=== PATIENT | male | born 1955 | race Caucasian/White ===

== ENCOUNTER 2018-03-05 06:37 | Inpatient (IN) ==
[2018-03-05] MEDS ORDERED: Metoprolol Tartrate 25 MG Tablet PO SCH (07:15)
[2018-03-05] MEDS ORDERED: Chlorhexidine Gluconate 2% 1 Pack (2 Cloths) TOPICAL SCH (07:15)
[2018-03-05] MEDS ORDERED: Sodium Chlor 0.9% Inj 40 ML, Bupivacaine Liposo PF 1.3% Inj 20 ML P-ARTICULR SCH ×2 (07:15)
[2018-03-05] MEDS ORDERED: Tetracaine PF 1% Inj 20 MG/2 ML Ampul ONE (07:54)
[2018-03-05] MEDS ORDERED: TRANEXAMIC ACID IV.SIG SCH ×2 (08:00→10:16)
[2018-03-05] MEDS ORDERED: ceFAZolin 2 GM Premix Inj 2 GM/50 ML PIGGYBACK IV.SIG SCH (08:00)
[2018-03-05] MEDS ORDERED: SODIUM CHLOR 0.9% IV.SIG SCH ×2 (08:00→10:16)
[2018-03-05] MEDS ORDERED: Sodium Chlor 0.9% Inj 500 ML IV.SIG SCH (08:00)
[2018-03-05] MEDS ORDERED: Propofol Inj 500 MG/50 ML Vial ONE (09:02)
[2018-03-05] MEDS ORDERED: Zolpidem Tartrate 5 MG Tablet PO PRN (11:18)
[2018-03-05] MEDS ORDERED: Morphine Inj 4 MG/ML Vial IV.PUSH PRN (11:18)
[2018-03-05] MEDS ORDERED: Acetaminophen 325 MG Tablet PO PRN (11:18)
[2018-03-05] MEDS ORDERED: Bisacodyl 10 MG Supp RECTAL PRN (11:18)
[2018-03-05] MEDS ORDERED: Tranexamic Acid Inj 0 MG in Sodium Chlor 0.9% Inj 100 ML IV.SIG ONE (11:18)
[2018-03-05] MEDS ORDERED: Post-op Orders (for Pharmacy) OTHER STA (11:18)
[2018-03-05] MEDS ORDERED: Aluminum/Magnesium/Simethacone Susp 30 ML UDC PO PRN (11:18)
--- NOTE | 2018-03-05 11:28 | P.OP ---
- Preoperative Diagnosis (1) Primary osteoarthritis of right hip - Postoperative Diagnosis (1) Primary osteoarthritis of right hip Date of procedure: 03/05/18 Procedure: Right total hip arthroplasty using Raymundo prosthesis Anesthesia: local (Exparel), spinal Surgeon: Luis Reynolds MD Track Watchman: BRAD Bates Estimated blood loss (mL): 350 Pathology: none sent Operation and Findings: Indications and Findings: This 63-year-old man has a 67 year history and limits his activities of daily living. His ambulation tolerance is 2 miles. He has pain throughout the 2 miles. He has stiffness in the joints. He has difficulty standing from a seated position, ascending and descending stairs and climbing into and out of his truck. He has been treated with nonsteroidal anti- inflammatory agents, analgesics, activity modification, intra-articular corticosteroids and ambulatory aids physical findings showed limitation of range of motion of the right hip with tenderness on motion imaging studies including x-rays and MRI show advanced arthritis in the right hip with loss of articular cartilage to [id number], osteophytes and subchondral sclerosis. Operative findings: There is severe osteoarthritis in the right hip with osteophytes and subchondral sclerosis with loss of articular cartilage to bone- on-bone and deformity of the femoral head. Implants: The acetabular component was a 58 mm Tritanium cluster shell with a 36 mm inner diameter 0 X3 polyethylene liner. The femoral component was an Accolade 2, size 7 x 132. The femoral head was 36 mm outer diameter, -2.5 mm offset, Biolox Delta. The patient was brought to the clean air operating suite and a spinal anesthetic was administered. The patient was positioned into a lateral position with the operative hip up on a [employer] lateral positioner. The hip and lower extremity were prepped with alcohol, Hibiclens and ChloraPrep and draped in the usual manner with the hip draped free. Patient received prophylactic antibiotics preoperatively. The patient also received tranexamic acid preoperatively. An appropriate timeout procedure was carried out. An incision was made from the midportion of the greater trochanter proximally and posteriorly paralleling the fibers of the gluteus van. The incision was deepened through subcutaneous tissues down to the fascia kiara and gluteus fascia. The gluteus fascia was then split longitudinally in line with its fibers up to the upper portion of the fascia kiara. With wound towels in place, the Charnley retractor was inserted. The sciatic nerve was identified and protected throughout the procedure. Dissection was then carried down to the interval between the gluteus minimus and the piriformis. A retractor was inserted. The piriformis and obturator conjoined tendon was released from the greater trochanter and reflected off the capsule. A capsulotomy was made longitudinally along the femoral neck to the base of the femoral neck and then curved distally along the posterior aspect of the greater trochanter. The hip was internally rotated. Further release of the external rotators was carried out exposing the hip. The hip was dislocated. The femoral neck was transected at the appropriate level using the oscillating saw placement of appropriate retractors. The femoral head was removed. Preparation of the femur was initiated with a box osteotome followed by a curet to identify the medullary canal. Broaching was then initiated with the size 0 broach and went in 1 size increments up to size 7. The broach handle was removed. The femoral neck was then trimmed with a calcar planar later in the procedure. Attention was then directed to the acetabulum. Soft tissues were debrided from the acetabulum. Retractors were placed about the acetabulum. Reaming was then initiated with the 45 millimeter reamer and went in 1-2 mm increments up to the 58 millimeter diameter reamer. A trial reduction with the 58 millimeter trial prosthesis was carried out. When this was deemed to be appropriate, the trial prosthesis was removed. The acetabulum was irrigated and cleaned. The actual prosthesis as noted above was impacted into place and seated appropriately. Drill holes were made and sounded. Appropriate sized screws were inserted to stabilize the acetabulum further. The liner as noted above was inserted into the acetabular shell and impacted into place. Osteophytes were trimmed from the acetabulum. Local anesthetic was administered throughout the area of the acetabulum and anterior aspect of the femur. The trial neck was placed on the broach for the above-noted prosthesis. The femoral head trial was placed onto the femoral neck . A trial reduction was carried out. Adjustment was made as needed. The stability, leg length and motion were excellent. There was no pistoning. The trial prosthesis was removed. The broach was removed. The femoral component was impacted into the medullary canal of the femur after irrigation and suctioning. When this was appropriately seated a trial reduction was again carried out with the trial prosthesis. There was no pistoning. The leg length was appropriate. The stability and motion were excellent. The trial prosthesis was then removed. After cleaning and drying the trunion of the femoral component, the above-noted femoral head was impacted onto the trunnion. The hip was reduced. The stability and mobility were again checked along with leg lengths as noted above. The hip was positioned appropriately and closure commenced after the remainder of the local anesthetic was injected throughout the hip. The external rotators and capsule were repaired with #1 Vicryl interrupted transosseous sutures with a Krakw technique to reattach the external rotators and capsule to the posterior aspect of the greater trochanter. The capsule itself on the superior aspect was closed with #1 Vicryl interrupted [id number] sutures. The sciatic nerve was inspected. The fascia kiara and gluteus fascia were repaired with #1 Vicryl interrupted [id number] sutures. The subcutaneous tissues were closed with 2-0 Vicryl interrupted simple sutures with buried knots. The skin was closed with a continuous subcuticular closure of 4-0 Monocryl. The wound was then approximated with Dermabond Prineo. A dry sterile dressing was applied to the hip. A knee immobilizer was applied to the leg. The patient was transferred from the operating room to the recovery room in satisfactory condition having tolerated the procedure well. Counts are correct. Specimens: None. Estimated blood loss: 350 mL
[2018-03-05] MEDS ORDERED: Labetalol HCl Inj 100 MG/20 ML Vial IV.CONT ONE (11:30)
[2018-03-05] MEDS ORDERED: fentaNYL Citrate Inj 100 MCG/2 ML Ampul ONE (11:33)
[2018-03-05] MEDS: Ketorolac Inj 30 MG/ML (IVP) Vial IV.PUSH SCH ×3 (12:15→23:05)
--- NOTE | 2018-03-05 12:25 | XR ---
EXAM DATE: 03/05/2018 12:14 PM EDT AGE/SEX: 63 years / Male INDICATIONS: Post right hip replacement CLINICAL DATA: This is the patient's initial encounter. Patient reports that signs and symptoms have been present for 1 day and indicates a pain score of Nonresponsive. MEDICAL/SURGICAL HISTORY: Non-responsive. Non-responsive. COMPARISON: No prior exams available for comparison. FINDINGS: Bony pelvis is intact and has normal morphology. Moderate osteoarthritis seen of the left hip. On the right, patient is status post total hip arthroplasty which appears intact and normally aligned. No a cute complication demonstrated. CONCLUSION: No acute abnormality demonstrated. Right total hip arthroplasty with an expected radiographic appeara nce. There is moderate osteoarthritis of the left hip. Electronically signed by: Alexys Portillo MD 03/05/2018 12:24 PM EDT
--- NOTE | 2018-03-05 16:55 | P.CON ---
History of Present Illness Service: [facility] Consult date: 03/05/18 Requesting Physician: Luis Reynolds Reason for Consult: Medical management Primary Care Provider: Gabrielle Dye Chief Complaint: Elective right hip arthroplasty History of Present Illness: 63-year-old male with past medical history significant for pre- hypertension and osteoarthritis who presents to [place] for elective right hip total arthroplasty by Dr. Reynolds. Patient is seen and examined sitting up in chair with at bedside. He reports that his pain is well controlled however still having numbness due to spinal anesthesia. He denies any nausea, vomiting, shortness of breath, cough, chills, headache, dizziness, or chest pain. He does complain of left shoulder pain, reports this pain began 2 nights ago. Patient rates left shoulder pain 2/10 He voices no other acute concerns or complaints at the moment. Review of Systems All other systems reviewed negative except as stated in HPI [facility] - History History Provided By: Patient - Medical History Medical History: Medical History (Last Reviewed 03/05/18 @ 16:48 by Adriana Joya) History of dental problems (Acute) Hyperlipidemia (Acute) Arthritis (Acute) - Surgical History Surgical History: Surgical History (Last Updated 03/05/18 @ 16:48 by Adriana Joya) History of toe surgery (Acute) Hx of vasectomy (Acute) S/P hernia repair - Tobacco History Second Hand Smoke Exposure: No Tobacco Use In Past 30 Days: No Smoking Status: Never smoker - Alcohol History How Often Do You Have a Drink Containing Alcohol: 4 or more times a week - Substance Use History Substance History: No History of Abuse - Travel History Recent Travel in the [facility] Within the Last 8 Weeks: No Recent Travel Out of the Country Within the Last 8 Weeks: No Medications and Allergies Active Medications: Active Medications Acetaminophen (Tylenol) 650 mg PO Q6H PRN PRN Reason: Pain Less Than 3 On Scale Hydrocodone Bitart/Acetaminophen (Melvin 7.5/325) 1 tab PO Q4H PRN PRN Reason: PAIN SCALE 4 TO 6 MODERATE Hydrocodone Bitart/Acetaminophen (Melvin 7.5/325) 2 tab PO Q6H PRN PRN Reason: PAIN SCALE 7 TO 10 SEVERE Al Hydrox/Mg Hydrox/Simethicone (Mag-Al Plus Susp Liq) 30 ml PO Q6H PRN PRN Reason: INDIGESTION Al Hydroxide/Mg Hydroxide (Milk Of Cait Liq) 30 ml PO BID PRN PRN Reason: Mild Constipation Ascorbic Acid (Vitamin C) 500 mg PO DAILY [facility] Aspirin (Aspirin Chew) 81 mg PO BID [facility] Bisacodyl (Dulcolax Supp) 10 mg RECTAL DAILY PRN PRN Reason: SEVERE CONSITIPATION Chlorhexidine Gluconate (Chlorhexidine 2% Cloth) 3 pack TOPICAL TEACHER COUNSELOR [facility] Stop: 03/08/18 07:14 Last Admin: 03/05/18 06:30 Dose: 3 pack Sodium Chloride 40 ml/ (Bupivacaine Liposome 20 ml) 0 ml P-ARTICULR ONCE [facility] Last Admin: 03/05/18 09:11 Dose: 1 bag Diphenhydramine HCl (Benadryl) 25 mg PO Q6H PRN PRN Reason: ITCHING Lactated Ringer's (Lr 1000 Ml Inj) 1,000 mls @ 30 mls/hr IV.SIG .Q24H [facility] Stop: 03/08/18 07:14 Last Infusion: 03/05/18 10:58 Dose: Infused Sodium Chloride (Ns Inj) 500 mls @ 30 mls/hr IV.SIG .Q10H [facility] Stop: 03/08/18 07:14 Cefazolin Sodium/Dextrose (Ancef 2 Gm Premix Inj) 2 gm in 50 mls @ 100 mls/hr IV.SIG TEACHER COUNSELOR [facility] Stop: 03/09/18 07:59 Last Infusion: 03/05/18 09:07 Dose: Infused Tranexamic Acid 937 mg/ Sodium (Chloride) 109.37 mls @ 200 mls/hr IV.SIG ONCE [facility] Stop: 03/06/18 07:59 Last Infusion: 03/05/18 09:20 Dose: Infused Tranexamic Acid 937 mg/ Sodium (Chloride) 109.37 mls @ 200 mls/hr IV.SIG ONCE [facility] Stop: 03/06/18 10:15 Cefazolin Sodium 1,000 mg/ (Sodium Chloride) 100 mls @ 200 mls/hr IV.SIG Q6H [facility] Stop: 03/06/18 03:29 Last Admin: 03/05/18 15:00 Dose: 200 mls/hr Lactated Ringer's (Lr 1000 Ml Inj) 1,000 mls @ 80 mls/hr IV.CONT .[id number] [facility] Last Admin: 03/05/18 11:25 Dose: 80 mls/hr Ketorolac Tromethamine (Toradol Inj) 15 mg IV.PUSH Q6H [facility] Stop: 03/07/18 06:01 Last Admin: 03/05/18 12:15 Dose: 15 mg Lactulose (Lactulose Liq) 30 ml PO DAILY PRN PRN Reason: SEVERE CONSITIPATION Metoprolol Tartrate (Lopressor) 25 mg PO TEACHER COUNSELOR [facility] Stop: 03/08/18 07:14 Miscellaneous Information ([facility] [place] [facility] Information) 1 each OTHER UNSCH PRN PRN Reason: SEE LABEL COMMENTS Stop: 03/06/18 11:24 Morphine Sulfate (Morphine Inj) 2 mg IV.PUSH Q3H PRN PRN Reason: BREAKTHROUGH PAIN Multivitamins (Theragran) 1 tab PO DAILY [facility] Ondansetron HCl (Zofran Odt) 4 mg PO Q6H PRN PRN Reason: NAUSEA OR VOMITING Povidone Iodine (Betadine 5% Antisepsis Kit) 1 applicatio EACH NARE TEACHER COUNSELOR [facility] Stop: 03/08/18 07:14 Senna/Docusate Sodium (Melissa-Colace) 1 tab PO BID [facility] Sennosides (Senokot) 17.2 mg PO BID PRN PRN Reason: Moderate Constipation Sodium Chloride (Ns Flush) 2 ml IV.FLUSH BID [facility] Sodium Chloride (Ns Flush) 2 ml IV.FLUSH PRN PRN PRN Reason: FLUSH AFTER USING IV ACCESS Vitamin B Complex/Vit C/Folic Acid (Nephrocaps) 1 tab PO DAILY [facility] Whey (Beneprotein Powder) 1 packet PO DAILY [facility] Zolpidem Tartrate (Ambien) 5 mg PO HS PRN PRN Reason: INSOMNIA Allergies Allergy/AdvReac Type Severity Reaction Status Date / Time No Known Allergies Allergy Verified 03/05/18 07:22 Home Medications Medication Instructions Recorded Confirmed Type ascorbic acid (vitamin C) 500 mg PO DAILY 02/26/18 03/05/18 History aspirin [Aspir-Low] 81 mg PO DAILY 02/26/18 02/26/18 History [id number]-[id number]-wvttm-CF borate 2 tab PO DAILY 02/26/18 03/05/18 History [Move Free Joint [facility]] meloxicam 15 mg PO DAILY 02/26/18 02/26/18 History multivitamin [Daily Multi-Vitamin] 1 tab PO DAILY 02/26/18 03/05/18 History red yeast rice 1,200 mg PO DAILY 02/26/18 03/05/18 History vitamin B complex 1 cap PO DAILY 02/26/18 03/05/18 History wheat dextrin [Benefiber Sugar 1 packet PO DAILY 02/26/18 03/05/18 History Free (dextrin)] Physical Exam Vital signs: Vital Signs 03/05/18 07:42 03/05/18 11:25 03/05/18 11:30 Temperature 37.1 C 36.2 C L Pulse Rate 77 66 60 Respiratory Rate 20 16 16 Blood Pressure 150/92 H 132/72 129/70 Pulse Oximetry 97 100 100 03/05/18 11:45 03/05/18 12:00 03/05/18 12:15 Temperature Pulse Rate 58 L 56 L 56 L Respiratory Rate 16 16 16 Blood Pressure 136/75 121/57 L 121/66 Pulse Oximetry 100 98 98 03/05/18 12:30 03/05/18 12:45 03/05/18 13:00 Temperature Pulse Rate 56 L 56 L 58 L Respiratory Rate 16 16 16 Blood Pressure 120/64 126/68 128/74 Pulse Oximetry 98 98 99 03/05/18 13:30 03/05/18 14:00 03/05/18 15:00 Temperature Pulse Rate 58 L 58 L 60 Respiratory Rate 16 16 16 Blood Pressure 127/70 134/71 132/70 Pulse Oximetry 97 98 99 Intake & Output 03/04/18 03/05/18 03/05/18 18:59 06:59 18:59 Intake Total 2759.37 / 2759.37 Output Total 850 / 850 Balance 1909.37 / 1909.37 Weight 93.7 kg Intake: IV 1159.37 / 1159.37 LR 1000 mL Inj 1,000 ML @ 30 1000 / 1000 mls/hr IV.SIG .Q24H [facility] Rx#: [id number] Cyklokapron Inj 937 MG In NS 109.37 / 109.37 Inj 100 ML @ 200 mls/hr IV.SIG ONCE [facility] Rx#:[id number] Ancef 2 GM Premix Inj 2 gm In 50 / 50 50 ml @ 100 mls/hr IV.SIG TEACHER COUNSELOR [facility] Rx#:[id number] Anesthesia Amount 1500 / 1500 Other 100 / 100 Output: Urine 500 / 500 Estimated Blood Loss 350 / 350 Other: Weight On Admission 93.7 kg Narrative: GENERAL: Well-nourished well-developed male sitting up in chair in no acute distress. SKIN: Warm and dry. HEAD: Atraumatic. Normocephalic. EYES: Pupils equal and round. No scleral icterus. No injection or drainage. ENT: No nasal bleeding. Mucous membranes pink and moist. NECK: Trachea midline. No JVD. CARDIOVASCULAR: Regular rate and rhythm. RESPIRATORY: No accessory muscle use. Clear to auscultation. Breath sounds equal bilaterally. GASTROINTESTINAL: Abdomen soft, non-tender, nondistended. + Bowel sounds. MUSCULOSKELETAL: Extremities without clubbing, cyanosis, or edema. Right hip dressings dry and intact. Left shoulder with + crepitus w/ passive and active ROM. NEUROLOGICAL: Awake and alert. No obvious cranial nerve deficits. Motor grossly within normal limits. Normal speech. PSYCHIATRIC: Appropriate mood and affect; insight and judgment normal. Assessment and Plan - Plan Osteoarthritis of right hip -Status post total right hip arthroplasty with Raymundo prosthesis 03/[address] Reynolds -Pain control with p.o. Melvin, IV morphine for breakthrough pain, bowel regimen -PT consulted -Will need follow-up for left shoulder pain Pre-hypertension -BP stable, continue monitoring. DVT prophylaxis-aspirin 81 mg twice daily Thank you Dr. Reynolds for this consultation. We will continue to follow along. Discussed Condition With: Discussed with patient and at bedside. Discharge Planning: Discharge pending orthopedic clearance.
[2018-03-05] MEDS: Senna/Docusate Sodium 8.6/50 MG Tablet PO SCH (20:37)
--- NOTE | 2018-03-05 20:50 | XR ---
EXAM DATE: 03/05/2018 8:07 PM EDT AGE/SEX: 63 years / Male INDICATIONS: Left shoulder pain from unknown injury. CLINICAL DATA: This is the patient's initial encounter. Patient reports that signs and symptoms have been present for 1 day and indicates a pain score of 7/10. MEDICAL/SURGICAL HISTORY: None. None. COMPARISON: No prior exams available for comparison. FINDINGS: Bony structures are intact and in normal alignment. Joints are intact without dislocation or signifi cant arthropathy. Osseous density is normal. Soft tissues are unremarkable. No radiopaque foreign bodies seen. CONCLUSION: Negative left shoulder series. Electronically signed by: Alexys Borrego MD 03/05/2018 8:49 PM EDT
[2018-03-06] MEDS: Ketorolac Inj 30 MG/ML (IVP) Vial IV.PUSH SCH (06:06)
--- NOTE | 2018-03-06 06:42 | P.PNOP ---
Subjective Interval history: Postoperative day #1 The patient is doing well. He no longer has any hip pain. He was able to stand with physical therapy but did not walk because his spinal effect had persisted when he was seen. He feels like he is ready to go home today. His left shoulder pain is much better today. He does indicate that there was some crepitation in his shoulder. Physical Exam Vital signs: Vital Signs 03/05/18 07:42 03/05/18 11:25 03/05/18 11:30 Temperature 98.8 F 97.2 F L Pulse Rate 77 66 60 Respiratory Rate 20 16 16 Blood Pressure 150/92 H 132/72 129/70 Pulse Oximetry 97 100 100 03/05/18 11:45 03/05/18 12:00 03/05/18 12:15 Temperature Pulse Rate 58 L 56 L 56 L Respiratory Rate 16 16 16 Blood Pressure 136/75 121/57 L 121/66 Pulse Oximetry 100 98 98 03/05/18 12:30 03/05/18 12:45 03/05/18 13:00 Temperature Pulse Rate 56 L 56 L 58 L Respiratory Rate 16 16 16 Blood Pressure 120/64 126/68 128/74 Pulse Oximetry 98 98 99 03/05/18 13:30 03/05/18 14:00 03/05/18 15:00 Temperature Pulse Rate 58 L 58 L 60 Respiratory Rate 16 16 16 Blood Pressure 127/70 134/71 132/70 Pulse Oximetry 97 98 99 03/05/18 20:00 03/06/18 00:00 03/06/18 03:30 Temperature 98.2 F 98.8 F 97.7 F Pulse Rate 78 79 60 Respiratory Rate 18 18 18 Blood Pressure 157/88 H 135/78 144/73 H Pulse Oximetry 95 98 97 Intake & Output 03/05/18 03/05/18 03/06/18 06:59 18:59 06:59 Intake Total 2859.37 / 2859.37 1580 / 1580 Output Total 850 / 850 Balance / 1580 / 1580 Weight 93.7 kg 94 kg Intake: IV 1259.37 / 1259.37 1100 / 1100 LR 1000 mL Inj 1,000 ML @ 80 1000 / 1000 mls/hr IV.CONT .[id number] [facility] Rx# :[id number] LR 1000 mL Inj 1,000 ML @ 30 1000 / 1000 mls/hr IV.SIG .Q24H [facility] Rx#: [id number] Cyklokapron Inj 937 MG In NS 109.37 / 109.37 Inj 100 ML @ 200 mls/hr IV.SIG ONCE [facility] Rx#:[id number] Ancef 2 GM Premix Inj 2 gm In 50 / 50 50 ml @ 100 mls/hr IV.SIG BUFFING MACHINE OPERATOR SEMIAUTOMATIC [facility] Rx#:[id number] Ancef Inj 1,000 MG In NS Inj 100 / 100 100 / 100 100 ML @ 200 mls/hr IV.SIG Q6H [facility] Rx#:[id number] Oral 480 / 480 Anesthesia Amount 1500 / 1500 Other 100 / 100 Output: Urine 500 / 500 Estimated Blood Loss 350 / 350 Other: # Voids 2 Date of Last Bowel Movement 03/04/18 Weight On Admission 93.7 kg Narrative: He is resting comfortably, supine in bed. The dressing is dry and intact. His neurovascular status is intact. His left shoulder motion is fairly good although there is crepitation on motion. He has minor tenderness with this. Results - Labs Laboratory Results - last 24 hr 03/05/18 07:30 Blood Type A Positive Blood Type Recheck Required Antibody Screen Negative - Imaging Impressions Shoulder X-Ray 03/05/18 00:00 CONCLUSION: The left shoulder in 2 views shows no evidence of acute fracture, dislocation or recent bony trauma. The glenohumeral and acromioclavicular joint spaces appear to be normal. There are some degenerative changes with osteophytes about the humeral head at the anatomic neck. The position of the humeral head in relation to the glenoid is normal. Hip X-Ray 03/05/18 11:14 CONCLUSION: The right hip and 2 views with an AP pelvis show good position and alignment of the total hip prosthesis. - Procedures Right total hip arthroplasty using Taylor prosthesis on 03/05/2018. Assessment and Plan - Ortho Post Op Day # 1 - Problem List (1) Status post total replacement of right hip Code(s): Z96.641 - Presence of right artificial hip joint Status: Acute Plan: Continue postop care and PT. (2) Primary osteoarthritis of right hip Code(s): M16.11 - Unilateral primary osteoarthritis, right hip Status: Chronic - Assessment and Plan Condition: Good. Orthopedically stable. DVT prophylaxis: TEDs, aspirin, sequentials. Discharge plans: Home with home health care. An appointment was scheduled through the office. Prescriptions: [place] 7.5/325; Patient is having significant pain caused by a total hip arthroplasty which will last more than 3 days. Trial of Tylenol has not helped. I believe that it is medically necessary to treat patients pain because it is affecting patients ability to participate in postoperative rehabilitation and perform activities of daily living in a comfortable and efficient manner.
--- NOTE | 2018-03-06 06:49 | P.DS ---
Date of admission: 03/05/18 06:37 Primary care physician: Gabrielle Dye Attending physician on discharge: Luis Reynolds Anticipated date of discharge: 03/06/18 Brief History from admission: This 63-year-old man has had long-standing in his right hip over several years, worsening more recently. He has a limited ambulation tolerance, difficulty entering and exiting his vehicle, difficulty standing from a seated position and ascending and descending stairs. He has not responded to conservative measures including anti-inflammatory agents, analgesics, intra-articular corticosteroids or the use of ambulatory aids. This is interfered with his work. Physical findings showed limited range of motion in the hip with crepitation on motion, tenderness on motion and an antalgic gait. X-rays showed severe osteoarthritis with eburnation, osteophytes about the femoral head and acetabulum loss of articular cartilage to [id number]. There was prominence in the lateral aspect of the femoral head and neck consistent with femoral acetabular impingement. DS: Diagnosis - Discharge Diagnosis (1) Status post total replacement of right hip Status: Acute (2) Primary osteoarthritis of right hip Status: Chronic DS: Medications - Discharge Medications Prescriptions: hydrocodone-acetaminophen 1 tab PO Q4H PRN 7 Days #42 tab PRN Reason: Pain DS: Summary Hospital Course: The patient was admitted as noted above. The above noted operative procedure was carried out that day. Preoperatively prophylactic antibiotics were administered Ancef according to protocol. These were continued postoperatively. The patient also received tranexamic acid to help with hemostasis according to protocol. In the postanesthesia care unit mechanical methods of DVT prophylaxis in the form of CORRY stockings and sequentials were initiated. Physical therapy was initiated on the day of surgery. He complained of pain in his left shoulder. X-rays of the shoulder showed some mild arthritis. On postoperative day #1 physical therapy continued. DVT prophylaxis with aspirin 81 mg twice daily was initiated at this time. The patient continued physical therapy throughout the hospitalization. The distance walked and range of motion improved throughout the hospitalization. The patient was discharged on postoperative day 1 with the disposition being to home with home health care. An appointment for follow-up was made prior to admission. - Time Spent with Patient Total time spent providing and/or coordinating discharge services: - Quality: VTE Deep Vein Thrombosis/Pulmonary Embolism Present on Admission: No Exam Vital signs: Vital Signs 03/05/18 07:42 03/05/18 11:25 03/05/18 11:30 Temperature 98.8 F 97.2 F L Pulse Rate 77 66 60 Respiratory Rate 20 16 16 Blood Pressure 150/92 H 132/72 129/70 Pulse Oximetry 97 100 100 03/05/18 11:45 03/05/18 12:00 03/05/18 12:15 Temperature Pulse Rate 58 L 56 L 56 L Respiratory Rate 16 16 16 Blood Pressure 136/75 121/57 L 121/66 Pulse Oximetry 100 98 98 03/05/18 12:30 03/05/18 12:45 03/05/18 13:00 Temperature Pulse Rate 56 L 56 L 58 L Respiratory Rate 16 16 16 Blood Pressure 120/64 126/68 128/74 Pulse Oximetry 98 98 99 03/05/18 13:30 03/05/18 14:00 03/05/18 15:00 Temperature Pulse Rate 58 L 58 L 60 Respiratory Rate 16 16 16 Blood Pressure 127/70 134/71 132/70 Pulse Oximetry 97 98 99 03/05/18 20:00 03/06/18 00:00 03/06/18 03:30 Temperature 98.2 F 98.8 F 97.7 F Pulse Rate 78 79 60 Respiratory Rate 18 18 18 Blood Pressure 157/88 H 135/78 144/73 H Pulse Oximetry 95 98 97 Intake & Output 03/05/18 03/05/18 03/06/18 06:59 18:59 06:59 Intake Total 2859.37 / 2859.37 1580 / 1580 Output Total 850 / 850 Balance 37 / 1580 / 1580 Weight 93.7 kg 94 kg Intake: IV 1259.37 / 1259.37 1100 / 1100 LR 1000 mL Inj 1,000 ML @ 80 1000 / 1000 mls/hr IV.CONT .[id number] [facility] Rx# :[id number] LR 1000 mL Inj 1,000 ML @ 30 1000 / 1000 mls/hr IV.SIG .Q24H [facility] Rx#: [id number] Cyklokapron Inj 937 MG In NS 109.37 / 109.37 Inj 100 ML @ 200 mls/hr IV.SIG ONCE [facility] Rx#:[id number] Ancef 2 GM Premix Inj 2 gm In 50 / 50 50 ml @ 100 mls/hr IV.SIG [employer] [facility] Rx#:[id number] Ancef Inj 1,000 MG In NS Inj 100 / 100 100 / 100 100 ML @ 200 mls/hr IV.SIG Q6H [facility] Rx#:[id number] Oral 480 / 480 Anesthesia Amount 1500 / 1500 Other 100 / 100 Output: Urine 500 / 500 Estimated Blood Loss 350 / 350 Other: # Voids 2 Date of Last Bowel Movement 03/04/18 Weight On Admission 93.7 kg Narrative: He is resting comfortably, supine in bed, with the leg in the leg brace. His neurovascular status is intact. His dressing is dry and intact. Results Procedures completed during hospitalization: Right total hip arthroplasty using Idamay prosthesis on 03/05/2018. Labs on day of discharge: Labs from last 24 hours 03/05/18 07:30 Blood Type A Positive Blood Type Recheck Required Antibody Screen Negative - Impressions ITS Impressions Shoulder X-Ray 03/05/18 00:00 CONCLUSION: There was mild osteoarthritis in the glenohumeral joint. Hip X-Ray 03/05/18 11:14 CONCLUSION: A total hip arthroplasty is noted in good position and alignment. Discharge Plan - Discharge Disposition Patient Disposition: /Home Health Service - Discharge Condition Condition: Stable - Discharge Order Discharge Orders: Discharge Order (Routine); Ordered 03/06/18 Ordered By: Luis Reynolds - Discharge Details Anticipated Discharge Date: 03/06/18 - Physicians Team Attending Provider: Luis Reynolds Other Providers: Nils Ruiz MD - Rxs /Orders / Referrals /Forms Prescriptions: New aspirin 81 mg Tablet,Chewable 81 mg PO BID Qty: 0 RF: 0 hydrocodone-acetaminophen 7.5-325 mg Tablet 1 tab PO Q4H PRN (Reason: Pain) 7 Days Qty: 42 RF: 0 Continue ascorbic acid (vitamin C) 500 mg Tablet 500 mg PO DAILY [id number] borate [Move [employer] Health] 750 mg-100 mg- 1.65 mg-108 mg Tablet 2 tab PO DAILY meloxicam 15 mg Tablet 15 mg PO DAILY multivitamin [Daily Multi-Vitamin] Tablet 1 tab PO DAILY red yeast rice 600 mg Capsule 1,200 mg PO DAILY vitamin B complex Capsule 1 cap PO DAILY wheat dextrin [Benefiber Sugar Free (dextrin)] 3 gram/3.8 gram Powder 1 packet PO DAILY Discontinued aspirin [Aspir-Low] 81 mg Tablet,Delayed Release (Dr/Ec) 81 mg PO DAILY Referrals: Gabrielle Dye [Other] - See Instructions Luis Reynolds MD [Physician] - See Instructions - Discharge Instructions Patient Printed Instructions: Total Hip Replacement (DC)
[2018-03-06 07:41] LABS: Hematocrit 36.5 % (39.0-51.0); Hemoglobin 12.6 gm/dL (13.0-17.0)
[2018-03-06] MEDS: Senna/Docusate Sodium 8.6/50 MG Tablet PO SCH (08:35)
[2018-03-06] MEDS ORDERED: Vitamin B Complex/Vit C/Folic Tablet PO SCH (09:00)
[2018-03-06] MEDS ORDERED: Ascorbic Acid 500 MG Tablet PO SCH (09:00)
[2018-03-06] MEDS ORDERED: Beneprotein Powder Packet PO SCH (09:00)
[2018-03-06] MEDS ORDERED: [UNRECOGNIZED DRUG - REMARK] PO SCH (09:00)
== END 2018-03-06 11:31 | disposition home health service (06) ==
LOC: HSDI 06:37 → N06 16:05
PROVIDERS: ADMIT Orthopaedic Surgery; ATTEND Orthopaedic Surgery